=== PATIENT | male | born 1995 | race Caucasian/White ===

== ENCOUNTER → 2020-10-04 | Outpatient (REF) | payer BC, OTHER ==
[2020-10-04 18:29] LABS: HEPATITIS B SURFACE ANTIBODY NEGATIVE (POSITIVE); HEPATITIS B SURFACE ANTIGEN NEGATIVE (NEGATIVE)
[2020-10-06 05:11] LABS: MUMPS VIRUS IgG ANTIBODY 24.6 AU/mL (Immune >10.9); RUBEOLA IgG ANTIBODY 78.6 AU/mL (Immune >16.4)
== END ==
LOC: M LAB REF 16:37
PROVIDERS: ATTEND Physician Assistant
DX: Z00.00 Encounter for general adult medical examination without abnormal findings (principal)